=== PATIENT | female | born 1980 | race Caucasian/White ===

== ENCOUNTER 2017-06-28 11:59 | Emergency (ER) | payer MEDICAID ==
[~2017-06-28] VITALS: Ht 160 cm; Wt 74.5 kg
[~2017-06-28 11:59] MED LIST: CIPR500T4 PO; CYCL-319 PO; DENIES; HYDR-3498 PO; IBUP-1542 PO; NAPR-260 PO; ONDA8TAB14 PO; PREN1TAB12; TRAM50TA2 PO; ZOF8 PO
[2017-06-28 12:16] VITALS: Ht 160 cm; Wt 74.5 kg
--- NOTE | 2017-06-28 12:46 | ERA ---
ER Documentation Chief Complaint Date/Time DATE: 06/28/17 TIME: 12:46 Chief Complaint pt bib family with c/o chest pain HPI The patient is a 37-year-old female, presenting to the ER because of intermittent substernal chest discomfort for 1 week, worse with movement, she had similar symptoms previously, denies fever, chills, neck pain, chest pain with exertion/vomiting/diaphoresis, denies abdominal pain, vomiting, dysuria, diarrhea. She has been cleaning frequently at home. She complains of left shoulder pain with movement and intermittent neck discomfort, complains of bilateral ear pain and sore throat. She does not smoke nor drink Past medical history: None Past surgical history: 2 ROS All systems reviewed and are negative except as per history of present illness. Medications Home Meds Active Scripts Hydrocodone/Acetaminophen (Mayo 5-325 Tablet) 1 Each Tablet, 1 TAB PO Q6H Y for PAIN, #7 TAB Prov:CASEY MERA MD 06/28/17 Ibuprofen* (Motrin*) 600 Mg Tab, 600 MG PO Q6, #20 TAB Prov:CASEY MERA MD 06/28/17 Ibuprofen* (Motrin*) 600 Mg Tab, 600 MG PO Q6, #20 TAB Prov:VIRI SAUCEDO MD 08/13/16 Ondansetron (Ondansetron Odt) 8 Mg Tab.rapdis, 8 MG PO Q6H Y for NAUSEA AND/OR VOMITING, #10 TAB Prov:VIRI SAUCEDO MD 08/13/16 Tramadol HCl (Tramadol HCl) 50 Mg Tablet, 50 MG PO Q4 Y for PAIN, #20 TAB Prov:VIRI SAUCEDO MD 08/13/16 Naproxen* (Naprosyn*) 500 Mg Tablet, 500 MG PO BID Y for PAIN AND/OR INFLAMMATION, #30 TAB Prov:PEDRO MACEDO PA-C 03/17/16 Hydrocodone Bit-Acetaminophen* (Mayo*) 5-325 Mg Tab, 1 TAB PO Q6 Y for PAIN, # 7 TAB Prov:PEDRO MACEDO PA-C 03/17/16 Cyclobenzaprine Hcl* (Cyclobenzaprine Hcl*) 10 Mg Tablet, 10 MG PO TID, #15 TAB Prov:PEDRO MACEDO PA-C 03/17/16 Ibuprofen* (Ibuprofen*) 600 Mg Tablet, 600 MG PO Q6, #14 TAB Prov:VIRI SAUCEDO MD 09/20/15 Hydrocodone Bit-Acetaminophen* (Mayo*) 5-325 Mg Tab, 1 TAB PO Q6 Y for PAIN, # 10 TAB Prov:VIRI SAUCEDO MD 09/20/15 Ondansetron Hcl* (Zofran* ODT) 8 mg -ODT Tab.disper, 8 MG PO Q6 Y for NAUSEA AND /OR VOMITING, #6 TAB Prov:VIRI SAUCEDO MD 09/20/15 Ciprofloxacin Hcl* (Ciprofloxacin Hcl*) 500 Mg Tablet, 500 MG PO BID for 10 Days , TAB Prov:VIRI SAUCEDO MD 09/20/15 Reported Medications Vit/Fe Fumarate/Fa ( 1-1 Tablet) 1 Tab Tablet 05/05/10 [Denies] No Conflict Check 12/24/09 Allergies Allergies: Coded Allergies: No Known Allergy (Verified , 03/17/16) PMhx/Soc History of Surgery: Yes (CSECTION X 2) Anesthesia Reaction: No Hx Neurological Disorder: No Hx Respiratory Disorders: No Hx Cardiac Disorders: No Hx Miscellaneous Medical Probl: No Hx Alcohol Use: No Hx Substance Use: No Hx Tobacco Use: No Physical Exam Vitals Vital Signs Date Time Temp Pulse Resp B/P Pulse Ox O2 Delivery O2 Flow Rate FiO2 06/28/17 12:16 99.1 64 18 128/79 100 Physical Exam Const: No acute distress. Head: Atraumatic. Eyes: Normal Conjunctiva. ENT: Normal External Ears, Nose and Mouth. Neck: Full range of motion. No meningismus. Resp: Clear to auscultation bilaterally. Cardio: Regular rate and rhythm. Abd: Soft, non distended, normal bowel sounds, non tender. Skin: No petechiae or rashes. Back: No midline or flank tenderness. Ext: No cyanosis, or edema.Left shoulder with vague tenderness, no erythema, crepitus, not warm to touch Neur: Awake and alert. No focal deficit Psych: Normal Mood and Affect. Results 24 hrs Current Medications Medications (Trade) Dose Ordered Sig/James Route PRN Reason Start Time Stop Time Status Last Admin Dose Admin Acetaminophen/ Hydrocodone Bitart (Mayo (5/325)) 1 tab ONCE ONCE PO 06/28/17 13:00 06/28/17 13:01 DC 06/28/17 13:01 Ondansetron HCl (Zofran Odt) 4 mg ONCE STAT ODT 06/28/17 12:53 06/28/17 12:54 DC 06/28/17 13:01 Procedures/MDM EKG: Read by emergency physician Rate/Rhythm: Normal Sinus Rhythm 63 beats/min QRS, ST, T-waves: No ST elevation, no T inversion Impression: Normal EKG [place] [id number] Radiology Main Line: [phone] DIAGNOSTIC IMAGING REPORT Patient: MANI BAILEY : 1980 Age: 37 Sex: F MR #: [id number] DOS: 06/28/17 0000 Ordering MD: CASEY MERA MD Location: E/R Room/Bed: PROCEDURE: XR Chest. CLINICAL INDICATION: chest pain TECHNIQUE: Single frontal view of the chest was obtained COMPARISON: None FINDINGS: The heart and mediastinum are within normal limits. The lungs are clear. There is no pleural effusion or pneumothorax. RPTAT: AA IMPRESSION: No acute disease. .Oscar Sultana MD, Date Time Electronically viewed and signed by .Oscar Sultana MD, on 06/28/2017 13: 42 .S/ CC: CASEY MERA MD MEDICAL MAKING DECISION: Patient is a 37-year-old female, presenting with chest pain of unclear etiology, most likely musculoskeletal acute left shoulder pain of unclear etiology. She was treated with Mayo 5 mg p.o. for pain and Zofran ODT for nausea with good response. I do not suspect ACS or PE.She is stable for outpatient follow-up The differential diagnoses for acute chest pain considered include but are not limited to acute coronary syndrome, acute myocardial infarction, pericarditis, pulmonary embolism, aortic dissection, pneumonia, pleural effusion, pneumothorax , GERD, chest wall pain. Departure Diagnosis: Primary Impression: Chest pain of uncertain etiology Additional Impression: Shoulder pain, left Condition: Good Comments She was discharged with Motscooter and Bette I discussed the findings with the patient. I advised the patient to follow-up with the primary physician in about 1-2 days, sooner if needed and return if any concern. She was advised that if the pain is persistent, she would need MRI for further evaluation CASEY MERA MD Jun 28, 2017 12:46
[2017-06-28] MEDS ORDERED: ONDANSETRON (ODT) 4 MG TAB ODT STA (12:53)
[2017-06-28] MEDS ORDERED: HYDROCODONE/APAP (5/325) TAB PO ONE (13:00)
--- NOTE | 2017-06-28 13:43 | RADRPT ---
PROCEDURE: XR Chest. CLINICAL INDICATION: chest pain TECHNIQUE: Single frontal view of the chest was obtained COMPARISON: None FINDINGS: The heart and mediastinum are within normal limits. The lungs are clear. There is no pleural effusion or pneumothorax. RPTAT: AA IMPRESSION: No acute disease. .Oscar Sultana MD, Date Time Electronically viewed and signed by .Oscar Sultana MD, on 06/28/2017 13:42 .S/
[2017-06-28] MEDS ORDERED: IBUP-1542 PO (13:57)
[2017-06-28] MEDS ORDERED: HYDR-906 PO (13:58)
[2017-06-28 14:06] VITALS: BP 125/72; PULSE 71; RESP 18; TEMP 98.5
== END 2017-06-28 14:38 | disposition home or self-care (01) ==
LOC: E/R 11:59
DX: R07.2 Precordial pain (principal); M25.512 Pain in left shoulder
CPT/HCPCS: 71010; 93005; Z7502; Z7610

== ENCOUNTER 2017-08-05 18:50 | Emergency (ER) | payer MEDICAID ==
[~2017-08-05] VITALS: Ht 160 cm; Wt 74.7 kg
[~2017-08-05 18:50] MED LIST changes: +HYDR-906 PO
[2017-08-05 18:53] VITALS: Ht 160 cm; Wt 74.7 kg
[2017-08-05] MEDS ORDERED: BEN25 PO (21:10)
--- NOTE | 2017-08-05 21:20 | ERD ---
ER Documentation Chief Complaint Chief Complaint left ear pain x 1 day HPI Patient is 37-year-old female presenting to the emergency department with complaints of tinnitus of the left ear which began this morning. Symptoms are now worsening. She denies any sore throat, ear pain, cough, fevers, chills, or other symptoms. Symptoms are mild in severity. ROS All systems reviewed and are negative except as per history of present illness. Medications Home Meds Active Scripts Diphenhydramine Hcl* (Benadryl*) 25 Mg Cap, 25 MG PO Q6, #20 CAP Prov:ALAINA BAHENA PA-C 08/05/17 Hydrocodone/Acetaminophen ([place] 5-325 Tablet) 1 Each Tablet, 1 TAB PO Q6H Y for PAIN, #7 TAB Prov:CASEY MERA MD 06/28/17 Ibuprofen* (Motrin*) 600 Mg Tab, 600 MG PO Q6, #20 TAB Prov:CASEY MERA MD 06/28/17 Ibuprofen* (Motrin*) 600 Mg Tab, 600 MG PO Q6, #20 TAB Prov:VIRI SAUCEDO MD 08/13/16 Ondansetron (Ondansetron Odt) 8 Mg Tab.rapdis, 8 MG PO Q6H Y for NAUSEA AND/OR VOMITING, #10 TAB Prov:VIRI SAUCEDO MD 08/13/16 Tramadol HCl (Tramadol HCl) 50 Mg Tablet, 50 MG PO Q4 Y for PAIN, #20 TAB Prov:VIRI SAUCEDO MD 08/13/16 Naproxen* (Naprosyn*) 500 Mg Tablet, 500 MG PO BID Y for PAIN AND/OR INFLAMMATION, #30 TAB Prov:PEDRO MACEDO PA-C 03/17/16 Hydrocodone Bit-Acetaminophen* ([place]*) 5-325 Mg Tab, 1 TAB PO Q6 Y for PAIN, # 7 TAB Prov:PEDRO MACEDO PA-C 03/17/16 Cyclobenzaprine Hcl* (Cyclobenzaprine Hcl*) 10 Mg Tablet, 10 MG PO TID, #15 TAB Prov:PEDRO MACEDO PA-C 03/17/16 Ibuprofen* (Ibuprofen*) 600 Mg Tablet, 600 MG PO Q6, #14 TAB Prov:VIRI SAUCEDO MD 09/20/15 Hydrocodone Bit-Acetaminophen* ([place]*) 5-325 Mg Tab, 1 TAB PO Q6 Y for PAIN, # 10 TAB Prov:VIRI SAUCEDO MD 09/20/15 Ondansetron Hcl* (Zofran* ODT) 8 mg -ODT Tab.disper, 8 MG PO Q6 Y for NAUSEA AND /OR VOMITING, #6 TAB Prov:VIRI SAUCEDO MD 09/20/15 Ciprofloxacin Hcl* (Ciprofloxacin Hcl*) 500 Mg Tablet, 500 MG PO BID for 10 Days , TAB Prov:VIRI SAUCEDO MD 09/20/15 Reported Medications Vit/Fe Fumarate/Fa ( 1-1 Tablet) 1 Tab Tablet 05/05/10 [Denies] No Conflict Check 12/24/09 Allergies Allergies: Coded Allergies: No Known Allergy (Verified , 03/17/16) PMhx/Soc History of Surgery: Yes (CSECTION X 3) Anesthesia Reaction: No Hx Neurological Disorder: No Hx Respiratory Disorders: No Hx Cardiac Disorders: No Hx Psychiatric Problems: No Hx Miscellaneous Medical Probl: No Hx Alcohol Use: No Hx Substance Use: No Hx Tobacco Use: No Smoking Status: Never smoker Physical Exam Vitals Vital Signs Date Time Temp Pulse Resp B/P Pulse Ox O2 Delivery O2 Flow Rate FiO2 08/05/17 18:53 97.3 82 20 130/80 99 Physical Exam Const: Nontoxic, well-appearing female in no acute distress. Head: Atraumatic Eyes: Normal Conjunctiva ENT: Normal External Ears, Nose and Mouth. The airway is clear. No erythema , exudate, or tonsillar hypertrophy the posterior pharynx. Tympanic membranes are pearly sanchez and reflective bilaterally. No evidence of foreign body in the external auditory canals bilaterally. Skin: No petechiae or rashes Neur: Awake and alert Psych: Normal Mood and Affect Procedures/MDM 37-year-old female presents to the emergency department with complaints of tinnitus of the left ear which began today. Physical examination is unremarkable. Differential diagnoses include but are not limited to benign intermittent tinnitus, TM rupture, overexposure to auditory stimulus, and others. Patient stable for discharge with a prescription for Benadryl and was advised to follow-up with the primary care physician for possible referral to ENT if symptoms continue. No evidence of life-threatening pathology at time of discharge. Pt/family in agreement with discharge plan/diagnosis. Pt/family advised to return immediately with any new or worsening symptoms. Follow-up with primary care physician within the next 1-2 days. Disclaimer: Inadvertent spelling and grammatical errors are likely due to EHR/ dictation software use and do not reflect on the overall quality of patient care. Also, please note that the electronic time recorded on this note does not necessarily reflect the actual time of the patient encounter. Departure Diagnosis: Primary Impression: Tinnitus Laterality: left Qualified Code: H93.12 - Tinnitus of left ear Condition: Fair Patient Instructions: Tinnitus (Ringing in the Ears) Additional Instructions: No mas mejor en 2-3 barajas, regresar. Mas peor en 24 horas, regresear rapidamente. Ir a doctor primario en 1-2 barajas. Usar instrucciones cuando pastora medicamento. ALAINA BAHENA PA-C Aug 05, 2017 21:20
== END 2017-08-05 21:26 | disposition home or self-care (01) ==
LOC: FTE 18:50
DX: H93.12 Tinnitus, left ear (principal)
CPT/HCPCS: 99283

== ENCOUNTER 2019-05-14 20:07 | Emergency (ER) | payer MEDICAID, OTHER ==
[~2019-05-14] VITALS: Ht 157.5 cm; Wt 74.4 kg
[~2019-05-14 20:07] MED LIST changes: +BEN25 PO; -CYCL-319 PO; +CYCL10TA7 PO; +HYDR-4011 PO; -HYDR-906 PO; -NAPR-260 PO; +NAPR-985 PO
[2019-05-14 20:12] VITALS: Ht 157.5 cm; Wt 74.4 kg
[2019-05-14] MEDS ORDERED: IBUPROFEN 600 MG TAB PO ONE (21:30)
[2019-05-14 23:55] VITALS: BP 101/67; PULSE 75; RESP 18
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
== END 2019-05-14 23:56 | disposition home or self-care (01) ==
LOC: FTE 20:07
DX: M54.2 Cervicalgia (principal); M54.5 Low back pain; R07.9 Chest pain, unspecified
CPT/HCPCS: 71045; 72040; 72072; 72100; 81025